=== PATIENT | female | born 1985 | race Caucasian/White ===

== ENCOUNTER 2019-06-12 19:17 | Emergency (ER) | payer OTHER ==
[2019-06-12 19:36] VITALS: BP 134/85
== END 2019-06-12 22:22 | disposition left against medical advice (07) ==
LOC: ED 19:17
DX: Z53.21 Procedure and treatment not carried out due to patient leaving prior to being seen by health care provider (principal); M79.89 Other specified soft tissue disorders
CPT/HCPCS: 99282

== ENCOUNTER 2019-06-14 18:23 | Emergency (ER) | payer OTHER ==
--- NOTE | 2019-06-14 18:58 | ED ---
Complex/Multi-Sys Presentation - HPI Summary HPI Summary: This patient is a 34 year old female presenting to [facility] with a chief complaint of nausea and vomiting for the last 3 weeks. She states she has been sent home from work many days over the last 3 weeks. She reports bilateral leg swelling and intermittent lightheadedness. Her last menstrual period was in April. She recently had her IUD removed in December so she has had irregular periods and is unsure if she is and would like to be checked. She reports diarrhea last week. Medications reviewed, allergies noted. She has a surgical Hx of cholecystectomy. - History Of Current Complaint Chief Complaint: EDGeneral Time Seen by Provider: 06/14/19 18:42 Hx Obtained From: Patient Onset/Duration: Lasting Weeks Timing: Weeks Associated Signs And Symptoms: Positive: Nausea, Vomiting - Allergies/Home Medications Allergies/Adverse Reactions: Allergies Allergy/AdvReac Type Severity Reaction Status Date / Time acetaminophen [From Tylenol] Allergy Hives Verified 06/14/19 18:32 amoxicillin Allergy Swelling Verified 06/14/19 18:32 Of Face,Lips,& Throat bupropion [From Wellbutrin] Allergy Shakes Verified 06/14/19 18:32 gabapentin Allergy Swelling Verified 06/14/19 18:32 Of Face,Lips,& Throat naproxen Allergy Swelling Verified 06/14/19 18:32 Of Face,Lips,& Throat tramadol Allergy Hives Verified 06/14/19 18:32 MS Bupropion AdvReac Mild Shakes Unverified 10/21/14 11:43 [From Wellbutrin] PMH/Surg Hx/FS Hx/Imm Hx Endocrine/Hematology History: Denies: Hx Diabetes Cardiovascular History: Denies: Hx Coronary Artery Disease Musculoskeletal History: Reports: Hx Fibromyalgia Psychiatric History: Reports: Hx Substance Abuse - Surgical History Surgery Procedure, Year, and Place: cholecystectomy Infectious Disease History: No Infectious Disease History: Denies: Hx Clostridium Difficile, Hx Hepatitis, Hx Human Immunodeficiency Virus (HIV), Hx of Known/Suspected MRSA, Hx Shingles, Hx Tuberculosis, Hx Known/ Suspected VRE, Hx Known/Suspected VRSA, History Other Infectious Disease, Traveled Outside the [place] in Last 30 Days - Social History Alcohol Use: None Alcohol Amount: sober since 2006 Substance Use Type: Reports: None Substance Use Comment - Amount & Last Used: none since Sep 01, 2014 Smoking Status (MU): Light Every Day Tobacco Smoker Amount Used/How Often: 1/2 ppd Review of Systems Positive: Vomiting, Nausea Positive: Edema Neurological: Other - Lightheadedness All Other Systems Reviewed And Are Negative: Yes Physical Exam - Summary Physical Exam Summary: Constitutional: Well-developed, Well-nourished, Alert. (-) Distressed Skin: Warm, Dry HENT: Normocephalic; Atraumatic Eyes: Conjunctiva normal Neck: Musculoskeletal ROM normal neck. (-) JVD, (-) Stridor, (-) Tracheal deviation Cardio: Rhythm regular, rate normal, Heart sounds normal; Intact distal pulses; Radial pulses are 2+ and symmetric. (-) Murmur Pulmonary/Chest wall: Effort normal. (-) Respiratory distress, (-) Wheezes, (-) Rales Abd: Soft, (-) tenderness, (-) Distension, (-) Guarding, (-) Rebound Musculoskeletal: (-) Edema Lymph: (-) Cervical adenopathy Neuro: Alert, Oriented x3 Psych: Mood and affect Normal Triage Information Reviewed: Yes Vital Signs On Initial Exam: Initial Vitals Temp Pulse Resp BP Pulse Ox 98.2 F 82 16 123/82 100 06/14/19 18:25 06/14/19 18:25 06/14/19 18:25 06/14/19 18:25 06/14/19 18:25 Vital Signs Reviewed: Yes Procedures - Sedation Patient Received Moderate/Deep Sedation with Procedure: No Diagnostics - Vital Signs Vital Signs Temp Pulse Resp BP Pulse Ox 06/14/19 18:25 98.2 F 82 16 123/82 100 - Laboratory Result Diagrams: 06/14/19 19:11 06/14/19 19:11 Lab Statement: Any lab studies that have been ordered have been reviewed, and results considered in the medical decision making process. - EKG 1920 Cardiac Rate: NL - 63 BPM Summary of EKG Findings: Sinus arrythmia. ED Physician has reviewed and interpreted this EKG. Complex Multi-Symp Course/Dx Course Of Treatment: Patient is here 3 weeks of daily vomiting and feeling like she is going to faint. Patient has peripheral edema when she stands on her legs for a long period of time as well. Patient is currently asymptomatic and overall well-appearing with a normal exam. Patient did feels with last time she was but is not today per blood test. Patient had normal electrolytes. Patient had a normal EKG. Patient had negative BNP. Patient was given care [facility] and started on Zofran. - Diagnoses Provider Diagnoses: Nausea & vomiting Discharge ED - Sign-Out/Discharge Documenting (check all that apply): Patient Departure - Discharge - Discharge Plan Condition: Stable Disposition: HOME Prescriptions: Ondansetron TAB* [Zofran 4 MG Tab*] 4 mg PO Q8H PRN #12 tab PRN Reason: Vomiting Patient Education Materials: Acute Nausea and Vomiting (ED) Referrals: Valerie Rivera PA [Physician Humanities Teacher] - Additional Instructions: Take medication as prescribed. Come back with abdominal pain, incontractible vomiting, dizziness getting worse, or any other concerning symptoms. - Billing Disposition and Condition Condition: STABLE Disposition: Home - Attestation Statements Document Initiated by Adrienne: Yes Documenting Scribe: Feliciano Mendoza Provider For Whom Adrienne is Documenting (Include Credential): Sameer Valderrama MD Scribe Attestation: Feliciano Howard, scribed for Sameer Valderrama MD on 06/14/19 at 2030. Scribe Documentation Reviewed: Yes Provider Attestation: The documentation as recorded by the Feliciano pineda accurately reflects the service I personally performed and the decisions made by , Sameer Valderrama MD Status of Scribe Document: Viewed
[2019-06-14 19:20] LABS: ABS Eosinophils 0.1 10^3/ul (0-0.6); ABS Lymphocytes 2.4 10^3/ul (1.0-4.8); ABS Monocytes 0.6 10^3/ul (0-0.8); Eosinophil % 1.8 %; Hematocrit 44 % (35-47); Hemoglobin 14.8 g/dL (12.0-16.0); Lymphocyte % 33.3 %; Mean Corpuscular HGB Conc 34 g/dL (31-36); Mean Corpuscular Hemoglobin 32 pg (27-31); Mean Corpuscular Volume 94 fL (80-97); Mean Platelet Volume 8.2 fL (7.4-10.4); Nucleated Red Blood Cells % 0.1; Platelet Count 210 10^3/uL (150-450); Red Blood Count 4.65 10^6 /uL (3.70-4.87); Red Cell Distribution Width 13 % (10-15); White Blood Count 7.2 10^3/uL (3.5-10.8)
[2019-06-14 19:43] LABS: Anion Gap 3 mmol/L (2-11); BUN/Creatinine Ratio 14.1 (8-20); Blood Urea Nitrogen 9 mg/dL (6-24); CO2 Carbon Dioxide 29 mmol/L (22-32); Calcium 9.2 mg/dL (8.6-10.3); Chloride 105 mmol/L (101-111); EGFR African American 127.8 (>60); EGFR Non-African American 105.6 (>60); Glucose 111 mg/dL (70-100); Potassium 4.3 mmol/L (3.5-5.0); Sodium 137 mmol/L (135-145)
[2019-06-14 19:49] LABS: HCG Pregnancy < 0.60 mIU/mL
[2019-06-14 20:27] VITALS: BP 118/74
== END 2019-06-14 20:26 | disposition home or self-care (01) ==
LOC: ED 18:23
DX: R11.2 Nausea with vomiting, unspecified (principal); M79.7 Fibromyalgia; F17.200 Nicotine dependence, unspecified, uncomplicated; Z90.49 Acquired absence of other specified parts of digestive tract; Z88.6 Allergy status to analgesic agent; Z88.5 Allergy status to narcotic agent; Z88.0 Allergy status to penicillin; Z88.8 Allergy status to other drugs, medicaments and biological substances
CPT/HCPCS: 36415; 80048; 83880; 84702; 85025; 93005; 99282

== ENCOUNTER 2019-07-21 09:49 | Emergency (ER) | payer SELFPAY ==
--- NOTE | 2019-07-21 10:34 | ED ---
HPI Chest Pain - HPI Summary HPI Summary: The patient is a 34 y/o F presenting to [facility] with a chief complaint of immediate onset left rib pain and gradual onset SOB after she sustained a fall on 07/14/19. She reports that she had slipped on ice a week ago and suddenly had lower left lateral rib pain, which has continued to persist over the last week despite using Ibuprofen 1600mg to attempt to relieve the pain. This morning, her symptoms changed as she is now experiencing SOB and coughing, which aggravates the pain. She states she can feel something popping and out with breathing and coughing. Currently, the sharp pain is rated 9/10 in severity. History of previous rib fractures, fibromyalgia. 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 Medications reviewed. Allergies noted. - History of Current Complaint Chief Complaint: EDFall Time Seen by Provider: 07/21/19 10:20 Hx Obtained From: Patient Onset/Duration: Started Days Ago - 07/14/19, Still Present Timing: Lasting Days Initial Severity: Severe Current Severity: Severe Pain Intensity: 9 Pain Scale Used: 0-10 Numeric Chest Pain Location: Left Lateral - lower Chest Pain Radiates: No Character: Sharp/Stabbing Aggravating Factor(s): Deep Breaths, Other: - cough Alleviating Factor(s): Nothing - Ibuprofen to no relief Associated Signs and Symptoms: Positive: Shortness of Breath, Cough - Allergy/Home Medications Allergies/Adverse Reactions: Allergies Allergy/AdvReac Type Severity Reaction Status Date / Time amoxicillin Allergy Swelling Verified 07/21/19 09:56 Of Face,Lips,& Throat bupropion [From Wellbutrin] Allergy Shakes Verified 07/21/19 09:56 naproxen Allergy Swelling Verified 07/21/19 09:56 Of Face,Lips,& Throat tramadol Allergy Hives Verified 07/21/19 09:56 PMH/Surg Hx/FS Hx/Imm Hx Endocrine/Hematology History: Denies: Hx Diabetes Cardiovascular History: Denies: Hx Coronary Artery Disease Musculoskeletal History: Reports: Hx Fibromyalgia, Hx of Fracture(s) - ribs, jaw Psychiatric History: Reports: Hx Substance Abuse - Surgical History Surgical History: Yes Surgery Procedure, Year, and Place: cholecystectomy Infectious Disease History: No Infectious Disease History: Denies: Hx Clostridium Difficile, Hx Hepatitis, Hx Human Immunodeficiency Virus (HIV), Hx of Known/Suspected MRSA, Hx Shingles, Hx Tuberculosis, Hx Known/ Suspected VRE, Hx Known/Suspected VRSA, History Other Infectious Disease, Traveled Outside the [place] in Last 30 Days - Family History Known Family History: Negative: Diabetes - Social History Alcohol Use: None Alcohol Amount: sober since 2006 Hx Substance Use: Yes Substance Use Type: Reports: None Substance Use Comment - Amount & Last Used: none since Sep 01, 2014 Hx Tobacco Use: Yes Smoking Status (MU): Light Every Day Tobacco Smoker Amount Used/How Often: 1/2 ppd Review of Systems Positive: Other - pain over the lower left lateral ribs Positive: Shortness Of Breath, Cough All Other Systems Reviewed And Are Negative: Yes Physical Exam - Summary Physical Exam Summary: Appearance: The patient is well-nourished in no acute distress and in no acute pain. Skin: The skin is warm and dry, and skin color reflects adequate perfusion. HEENT: The head is normocephalic and atraumatic. The pupils are equal and reactive. The conjunctivae are clear and without drainage. Nares are patent and without drainage. Mouth reveals moist mucous membranes, and the throat is without erythema and exudate. The external ears are intact. The ear canals are patent and without drainage. The tympanic membranes are intact. Neck: The neck is supple with full range of motion and non-tender. There are no carotid bruits. There is no neck vein distension. Respiratory: There is tenderness in the left lower lateral ribs. Lungs are clear to auscultation and breath sounds are symmetrical and equal. Cardiovascular: Heart is regular rate and rhythm. There is no murmur or rub auscultated. There is no peripheral edema and pulses are symmetrical and equal. Abdomen: The abdomen is soft and non-tender. There are normal bowel sounds heard in all four quadrants and there is no organomegaly palpated. Musculoskeletal: There is no back tenderness noted. Extremities are non-tender with full range of motion. There is good capillary refill. There is no peripheral edema or calf tenderness elicited. Neurological: Patient is alert and oriented to person, place and time. The patient has symmetrical motor strength in all four extremities. Cranial nerves are grossly intact. Deep tendon reflexes are symmetrical and equal in all four extremities. Psychiatric: The patient has an appropriate affect and does not exhibit any anxiety or depression. Triage Information Reviewed: Yes Vital Signs On Initial Exam: Initial Vitals Temp Pulse Resp BP Pulse Ox 98.1 F 69 18 126/75 98 07/21/19 09:50 07/21/19 09:50 07/21/19 09:50 07/21/19 09:50 07/21/19 09:50 Vital Signs Reviewed: Yes Procedures - Sedation Patient Received Moderate/Deep Sedation with Procedure: No Diagnostics - Vital Signs Vital Signs Temp Pulse Resp BP Pulse Ox 07/21/19 09:50 98.1 F 69 18 126/75 98 - Laboratory Lab Statement: Any lab studies that have been ordered have been reviewed, and results considered in the medical decision making process. - Radiology CXR Radiology Interpretation Completed By: Radiologist Summary of Radiographic Findings: Impression: Minimally displaced left lateral ninth rib fracture. No pneumothorax. ED physician has reviewed this imaging report. Re-Evaluation - Re-Evaluation First Eval Re-Evaluation Time: 12:00 Change: Improved Comment: Patient placed in rib wrap by nurse. We discussed results and plan for discharge. Chest Pain Course/Dx - Course Course Of Treatment: Ms. Galicia is feeling a painful pop on the left side of her chest when she moves or coughs. She was nontoxic in appearance with stable vitals. Her lungs were clear but she was tender in the left side of lateral chest wall. Chest x-ray revealed a rib fracture in that area. She got some relief from her pain with a binder. She currently takes Zubsolv at a low dose 3 times a day. I recommended that we transiently increase her buprenorphine to help with the pain. She is due for a new prescription however she is having a problem with her [employer] insurance and cannot fill her prescription at this time. I recommend she follow up with Dr. Powell to consider pain control. - Diagnoses Provider Diagnoses: Rib fracture Discharge ED - Sign-Out/Discharge Documenting (check all that apply): Patient Departure - Patient will be discharged home. - Discharge Plan Condition: Stable Disposition: HOME Patient Education Materials: Rib Fracture (ED) Forms: *Work Release Referrals: Griselda Powell MD [Primary Care Provider] - 3 Days Additional Instructions: Follow up with your primary care provider in 2-3 days for further pain management and clearing you for heavier duty work. Return to the emergency department for any new or worsening symptoms. - Billing Disposition and Condition Condition: STABLE Disposition: Home - Attestation Statements Document Initiated by Adrienne: Yes Documenting Scribe: Nnoa Murguia Provider For Whom Adrienne is Documenting (Include Credential): Dr. Esvin Green MD Scribe Attestation: I, Nona Murguia scribed for Dr. Esvin Green MD on 07/21/19 at 1402. Scribe Documentation Reviewed: Yes Provider Attestation: The documentation as recorded by the Nona pineda accurately reflects the service I personally performed and the decisions made by me, Dr. Esvin Green MD Status of Scribe Document: Viewed
[2019-07-21] MEDS ORDERED: Acetaminophen TAB* 325 MG PO ONE (10:35)
[2019-07-21 12:17] VITALS: BP 125/74
== END 2019-07-21 12:14 | disposition home or self-care (01) ==
LOC: ED 09:49
DX: S22.32XA Fracture of one rib, left side, initial encounter for closed fracture (principal); W00.0XXA Fall on same level due to ice and snow, initial encounter; Y92.9 Unspecified place or not applicable; R06.02 Shortness of breath; R05 Cough; Z88.6 Allergy status to analgesic agent; Z88.5 Allergy status to narcotic agent; Z88.0 Allergy status to penicillin; Z88.8 Allergy status to other drugs, medicaments and biological substances; F17.200 Nicotine dependence, unspecified, uncomplicated
CPT/HCPCS: 71046; 99282; A9270-GY

== ENCOUNTER 2019-10-13 17:58 | Emergency (ER) | payer SELFPAY ==
[2019-10-13 20:42] VITALS: BP 125/93
== END 2019-10-13 21:18 | disposition left against medical advice (07) ==
LOC: ED 17:58
DX: M54.2 Cervicalgia (principal); Z53.21 Procedure and treatment not carried out due to patient leaving prior to being seen by health care provider
CPT/HCPCS: 99281

== ENCOUNTER 2019-10-14 16:04 | Emergency (ER) | payer SELFPAY ==
[2019-10-14 16:16] VITALS: BP 145/93
--- NOTE | 2019-10-14 17:35 | ED ---
Skin Complaint - HPI Summary HPI Summary: Patient complains of resolving abscesses under chin 2 weeks. Positive purulent discharge 3 days ago. Complains of lightheadedness, nausea and sweats 2 days. Denies fever, cough, sore throat, CP, SOB, N/V/D, abdominal pain, change in urine, change in BM. Positive for IV drug use, denies IV drug use at site of abscess. - History of Current Complaint Chief Complaint: EDRashSkinAbscess Time Seen by Provider: 10/14/19 17:13 Stated Complaint: DIZZY PER PT Hx Obtained From: Patient Onset/Duration: Started Weeks Ago Skin Exposure Onset/Duration: Weeks Ago Timing: Constant Onset Severity: Severe Current Severity: Moderate Pain Intensity: 5 Pain Scale Used: 0-10 Numeric Skin Location: Discrete, Face Aggravating Symptom(s): Touch Alleviating Symptom(s): Nothing Associated Signs & Symptoms: Nausea, Lightheadedness - Allergy/Home Medications Allergies/Adverse Reactions: Allergies Allergy/AdvReac Type Severity Reaction Status Date / Time amoxicillin Allergy Swelling Verified 10/14/19 16:15 Of Face,Lips,& Throat bupropion [From Wellbutrin] Allergy Shakes Verified 10/14/19 16:15 naproxen Allergy Swelling Verified 10/14/19 16:15 Of Face,Lips,& Throat tramadol Allergy Hives Verified 10/14/19 16:15 Home Medications: Home Medications Amoxicillin/Clavulanate TAB* [Augmentin TAB 875*] 875 mg PO BID #20 tab [Rx] Ibuprofen TAB* [Motrin TAB* 600 MG] 600 mg PO Q8H PRN 10/14/19 [History Confirmed 10/14/19] L. Acidophilus/Pectin, Hildebran [Acidophilus/Hildebran Pectin] 1 tab PO DAILY [History Confirmed 10/14/19] Ondansetron ODT TAB* [Zofran 4 MG Odt TAB*] 4 mg PO Q8H PRN 4 Days #14 tab.odt 10/14/19 [Rx] PMH/Surg Hx/FS Hx/Imm Hx Endocrine/Hematology History: Denies: Hx Diabetes Cardiovascular History: Denies: Hx Coronary Artery Disease Respiratory History: Reports: Hx Asthma History: Denies: Hx Dialysis Musculoskeletal History: Reports: Hx Fibromyalgia Sensory History: Denies: Hx Eye Prosthesis Opthamlomology History: Denies: Hx Legally Blind EENT History: Denies: Hx Deafness Psychiatric History: Reports: Hx Substance Abuse - Surgical History Surgery Procedure, Year, and Place: cholecystectomy Infectious Disease History: No Infectious Disease History: Denies: Hx Clostridium Difficile, Hx Hepatitis, Hx Human Immunodeficiency Virus (HIV), Hx of Known/Suspected MRSA, Hx Shingles, Hx Tuberculosis, Hx Known/ Suspected VRE, Hx Known/Suspected VRSA, History Other Infectious Disease, Traveled Outside the [place] in Last 30 Days - Family History Known Family History: Negative: Diabetes - Social History Alcohol Use: None Alcohol Amount: sober since 2006 Hx Substance Use: Yes Substance Use Type: Reports: None Substance Use Comment - Amount & Last Used: none since Sep 01, 2014 Hx Tobacco Use: Yes Smoking Status (MU): Light Every Day Tobacco Smoker Amount Used/How Often: 1/2 ppd Review of Systems Constitutional: Negative Eyes: Negative ENT: Negative Cardiovascular: Negative Respiratory: Negative Gastrointestinal: Negative Genitourinary: Negative Musculoskeletal: Negative Skin: Other Neurological/Mental Status: Negative Psychological: Normal All Other Systems Reviewed And Are Negative: Yes Physical Exam - Summary Physical Exam Summary: Small nonfluctuant abscess below chin. Several small pimple-like abscesses. No indication for I&D. Triage Information Reviewed: Yes Vital Signs On Initial Exam: Initial Vitals Temp Pulse Resp BP Pulse Ox 99.4 F 91 18 145/93 93 10/14/19 16:09 10/14/19 16:09 10/14/19 16:09 10/14/19 16:09 10/14/19 16:09 Vital Signs Reviewed: Yes Appearance: Positive: Well-Appearing Skin: Positive: Warm Head/Face: Positive: Normal Head/Face Inspection Eyes: Positive: Normal ENT: Positive: Normal ENT inspection Dental: Positive: Gross Decay/Caries @. Negative: Abscess @ Neck: Positive: Supple Respiratory/Lung Sounds: Positive: Clear to Auscultation Cardiovascular: Positive: Normal Abdomen Description: Positive: Nontender Musculoskeletal: Positive: Normal Neurological: Positive: Normal Psychiatric: Positive: Normal AVPU Assessment: Alert - [place] Coma Scale Best Eye Response: 4 - Spontaneous Best Motor Response: 6 - Obeys Commands Best Verbal Response: 5 - Oriented Coma Scale Total: 15 Procedures - Sedation Patient Received Moderate/Deep Sedation with Procedure: No Diagnostics - Vital Signs Vital Signs Temp Pulse Resp BP Pulse Ox 10/14/19 16:09 99.4 F 91 18 145/93 93 - Laboratory Lab Statement: Any lab studies that have been ordered have been reviewed, and results considered in the medical decision making process. Course/Dx - Course Course Of Treatment: Patient complains of resolving abscesses under chin 2 weeks. Positive purulent discharge 3 days ago. Complains of lightheadedness, nausea and sweats 2 days. Denies fever, cough, sore throat, CP, SOB, N/V/D, abdominal pain, change in urine, change in BM. Positive for IV drug use, denies IV drug use at site of abscess. Vital signs within normal limits. Rx for Augmentin. - Diagnoses Provider Diagnoses: Abscess Discharge ED - Sign-Out/Discharge Documenting (check all that apply): Patient Departure - Discharge Plan Condition: Stable Disposition: HOME Prescriptions: Amoxicillin/Clavulanate TAB* [Augmentin TAB 875*] 875 mg PO BID #20 tab Ondansetron ODT TAB* [Zofran 4 MG Odt TAB*] 4 mg PO Q8H PRN 4 Days #14 tab.odt PRN Reason: Nausea Patient Education Materials: Abscess (ED) Referrals: Griselda Powell MD [Primary Care Provider] - Additional Instructions: Take antibiotics as directed. Keep area clean and dry. Follow-up with primary care. Return to the ED for any new or worsening symptoms. - Billing Disposition and Condition Condition: STABLE Disposition: Home - Attestation Statements Provider Attestation: I was available for consultation for this patient. I did not evaluate the patient, or participate in any medical decision making or disposition decisions unless I am specifically named in the chart as having consulted on the patient. If I have consulted on the patient, please see my own ED note on the patient encounter. Jean Claude Cordova MD
[2019-10-14] MEDS ORDERED: Ondansetron ODT TAB* 4 MG PO ONE (17:39)
[2019-10-14] MEDS: Amoxicillin/Clavulanate TAB* 875 MG PO ONE ×2 (17:46→17:47)
== END 2019-10-14 18:12 | disposition home or self-care (01) ==
LOC: ED 16:04
DX: L02.91 Cutaneous abscess, unspecified (principal); R11.0 Nausea; R42 Dizziness and giddiness; J45.909 Unspecified asthma, uncomplicated; Z88.0 Allergy status to penicillin; F17.210 Nicotine dependence, cigarettes, uncomplicated
CPT/HCPCS: 99282; A9270-GY